=== PATIENT | female | born 2000 | race Caucasian/White ===

== ENCOUNTER 2024-04-05 17:11 | Emergency (ER) | payer OTHER, SELFPAY ==
[2024-04-05 17:16] VITALS: BP 126/83
[2024-04-05 19:16] VITALS: BP 121/75
--- NOTE | 2024-04-05 23:07 | ED.MUSCINJ ---
HPI-Injury
General
Chief Complaint: Musculo-Skeletal Complaint
Source: patient
Exam Limitations: none
Time Seen by Provider: 04/05/24 18:53
Nursing documentation reviewed up to this point in time: agreed with
History of Present Illness-Injury
Is this injury a work related problem?: No
Is pt an associate of [facility]/[place]?: No
Initial Injury comments:
Patient to ED wtih complaint of pain to right dorsal foot. Pain started a few weeks ago. Seen at , had neg. xray. No history of trauma. Pain persists. Brought to eD by mother for eval.
Past History
Past History
ED Past Medical History: None
ED Past Surgical History: None
Social History
Tobacco: Non-smoker
Alcohol: Occasional
Personal: Single
Living: with family
Employment: Student
Family History
Family History: Other (Noncontributory)
Review of Systems
Review of Systems
Allergies reviewed?: Yes
All Other Systems: ROS reviewed and negative except as documented in HPI and ROS
Constitutional: Reports no symptoms
Musculoskeletal: Reports joint pain (pain to dorsum of right foot)
Skin: Reports no symptoms
Neurological: Reports no symptoms
Psychiatric: Reports no symptoms
Musculoskeletal Injury Exam
Musculoskeletal Injury Exam
Right Dorsal Foot:
Pain with Movement?: Moderate
Tender to palpation?: Moderate
Soft tissue swelling?: Mild
External deformity and angulation?: None
Joint effusion?: None
Contusion?: None
Hematoma-local bleeding into tissue?: None
Strain- Sprain- Tear (Connective tissue injury)?: Moderate
Crepitus with movement?: No
Joint instability?: No
Malalignment/deformity?: No
Distal skin color and temperature: normal-warm & good color
Capillary Refill: normal
Normal distal neurovascular exam?: Yes
Peripheral Pulses: posterior tibial (right): 3+ and dorsalis pedis (right): 3+
Phy Exam
General Physical Exam
General Presentation: well appearing and no apparent distress
General age: appears stated age
General Skin: warm and dry
General Habitus: normal
General Mental: alert
Musculoskeletal Exam
Musculoskeletal Exam: neuro vasc intact and other (Achilles intact, no tenderness base of 5th)
Skin Exam
Skin Exam: normal color, warm/dry and no rash
Psychiatric Exam
Psychiatric Exam: normal mood/affect
Injury Course
Orders/Labs/Results
Orders:
Orders
04/05/24 17:15
Foot, Right 3 View [CR Foot - Right Min 3 Views] Urgent
Comment:
Reason For Exam: pain
04/05/24 19:00
Ortho Boot Right- Treatment ONCE
Short or tall?: Short
*Radiology
Radiology exam reviewed: radiology read reviewed
*Pulse Oximetry
Patient hypoxic: no
*Critical Care Note
Total Time (30-74mins, 75-104mins- exclusive of procedures): Not Applicable
ED Attending Note
-
Portions of this chart may have been created with voice recognition software.� Occasional wrong word or��sound alike� substitutions may have occurred due to the inherent limitations of voice recognition software.
Discharge Plan
Departure
Patient Disposition: Home (Routine Discharge)
Date of Disposition: 04/05/24
Time of Disposition: 19:00
Patient with high blood pressure during this ER visit?: No
Condition: Good
Covid-19: Not Applicable
Discharge Problem:
Metatarsal stress fracture
Instructions: Ibuprofen, Walking Boot, Using Cold for Pain, Stress Fracture ED
Prescriptions:
No Action
No Meds [No Current Medications]
0
cefixime [Suprax] 400 MG tablet
400 mg PO DAILY 14 Days Qty: 14 0RF
ibuprofen 600 MG tablet
600 mg PO QIDPRN PRN (Reason: pain) Qty: 30 0RF
Referrals:
Deshawn Loera MD [Active] - Call in 1-3 days for appt
Interventions
Interventions:
*Risk Screen - Suicide Last Done: 04/05/24 17:12
*General Assessment Last Done: 04/05/24 19:16
*Neglect/Abuse Screening Last Done: 04/05/24 19:14
*Nursing Disposition Last Done: 04/05/24 19:16
ED-Musculoskeletal Assessment Last Done: 04/05/24 19:14
Discharge Date and Time
Discharge Date/Time: 04/05/24 19:26
Print Language: DIVEHI
== END 2024-04-05 19:26 | disposition home or self-care (01) ==
LOC: EMR 17:11
PROVIDERS: EMERGENCY PHYSICIAN Emergency Medicine
DX: M84.377A Stress fracture, right toe(s), initial encounter for fracture (principal)
CPT/HCPCS: 99283; 29515; 73630

== ENCOUNTER 2024-07-28 18:46 | Emergency (ER) | payer OTHER, SELFPAY ==
[2024-07-28 18:51] VITALS: BP 130/82
[2024-07-28 19:22] LABS: Hematocrit 42.3 % (37.0-47.0); Hemoglobin 14.3 g/dL (12.0-16.0); Mean Corp Hgb Conc. 33.8 g/dL (33.0-37.0); Mean Corpuscular Hgb 28.6 pg (27.0-31.0); Mean Corpuscular Volume 84.6 fL (81.0-99.0); Mean Platelet Volume 8.2 fL (7.4-10.4); Platelet Count 297 10^3/uL (130-400); Red Cell Dist. Width 12.1 % (11.5-14.5); White Blood Cell Count 5.7 10^3/uL (4.8-10.8)
[2024-07-28 19:37] LABS: Blood Urea Nitrogen 14 mg/dl (7-17); Calcium 10.2 mg/dl (8.4-10.2); Carbon Dioxide 26 mmol/L (22-30); Chloride 100 mmol/L (98-107); Glucose 104 mg/dl (70-99); Potassium 3.7 mmol/L (3.5-5.1); Sodium 138 mmol/L (135-145); eGFR > 60.00
[2024-07-28 19:50] VITALS: BP 134/79
[2024-07-28 19:50] LABS: Troponin I < 0.012 ng/ml
--- NOTE | 2024-07-28 20:06 | ED.GENMED ---
History of Present Illness
General
Chief Complaint: Heart Rate Problem
Source: patient and family (Mother)
Exam Limitations: none
Time Seen by Provider: 07/28/24 19:45
History of Present Illness
History of Present Illness:
This is a 23 year old female that comes in with c/o feeling like her heart was racing. States that this started about 20min before she got here States that she feels like she is having a heart attack. Mom states that she has had this in the past
over the past several months. Patient states that she had an ache in the left shoulder, SOB, and lightheadedness. Denies any fever, chills, abd pain, nausea, vomiting, diarrhea, headache, urinary burning.
Past History
Past History
ED Past Medical History: None; Negative Asthma, HTN, Hypercholesterolemia or NIDDM
ED Past Surgical History: None
Social History
Tobacco: Former smoker (vaping)
Alcohol: Occasional
Personal: Single
Living: with family
Employment: Student
Family History
Family History: Other (Noncontributory)
Review of Systems
Review of Systems
All Other Systems: ROS reviewed and negative except as documented in HPI and ROS
Constitutional: Reports no symptoms; Denies fever or chills
EENT: Reports no symptoms
Respiratory: Reports trouble breathing; Denies cough
Cardiac: Reports chest pain
ABD/GI: Reports no symptoms; Denies abdominal pain, nausea, vomiting or diarrhea
: Reports no symptoms; Denies dysuria, frequency or urgency
Musculoskeletal: Reports no symptoms
Skin: Reports no symptoms
Neurological: Reports other (lightheaded); Denies dizzy or headache
Psychiatric: Reports no symptoms
Phy Exam
General Physical Exam
General Presentation: well appearing and no apparent distress
General age: appears stated age
General Skin: warm and dry
General Habitus: normal
General Mental: anxious
General Hydration: appears well hydrated
ENT Exam
ENT Exam: TM's normal, pharynx normal and neck supple
Eye Exam
Eye Exam: EOMI
Cardiovascular Exam
Cardiovascular Exam: regular rate/rhythm, no edema, no murmur and normal peripheral pulses
Pulmonary Exam
Pulmonary Exam: lungs clear, no respiratory distress, no rales, chest non tender, no crackles, no rhonchi, no wheezing and no cough
Gastrointestinal Exam
Gastrointestinal Exam: normal bowel sounds, non tender, soft, no organomegaly, no pulsatile mass and non distended
Musculoskeletal Exam
Musculoskeletal Exam: full ROM and no edema
Skin Exam
Skin Exam: normal color, warm/dry, no rash and no petechia
Psychiatric Exam
Psychiatric Exam: normal mood/affect
Course
Orders/Labs/Results
Orders:
Orders
07/28/24 18:47
EKG [Electrocardiogram (*1)] Urgent
Reason for Study: Palpitations
EKG- Treatment ONCE
07/28/24 19:06
Basic Metabolic Panel Urgent
Complete Blood Count/No Diff Urgent
TSH Urgent
Troponin I Urgent
07/28/24 20:06
CR Chest - 2 Views Urgent
Comment:
Reason For Exam: Chest pain
07/28/24 21:29
Electrocardiogram (*1) Urgent
Reason for Study: Chest Pain
Other Reason for Exam: Repeat with Troponin
EKG- Treatment ONCE
Lorazepam [Ativan] 0.5 mg PO NOW STA
07/28/24 21:34
D-Dimer Urgent
07/28/24 21:35
Troponin I Urgent
Abnormal Lab Results
07/28/24
19:06
Glucose 104 H mg/dl
(70-99)
07/28/24 19:06
07/28/24 19:06
glucose nonfasting. Troponin <0.012 TSH slightly low at 1.56, Second Troponin <0.012
D-dimer <0.27,
Vital Signs
Initial and Last Documented VS:
Initial Vital Signs
Temp Pulse Resp BP Pulse Ox
97.8 F 80 16 130/82 100
07/28/24 18:51 07/28/24 18:51 07/28/24 18:51 07/28/24 18:51 07/28/24 18:51
Last Documented Vital Signs
Temp Pulse Resp BP Pulse Ox
97.8 F 85 22 121/65 96
07/28/24 18:51 07/28/24 22:00 07/28/24 22:00 07/28/24 22:00 07/28/24 22:00
MDM/Problems Addressed
Differential Diagnosis Includes:
Anxiety, tachycardia
MDM/Problems Addressed:
This is a 23 year old female that comes in with c/o feeling like she is having a heart attack. States that she feels like her heart is racing and patient keeps trying to take her pulse on her Carotid.
Will check labs, Chest x-ray.
Back into see patient. Patient states that he still is having some discomfort in the left chest. Patient is very anxious. Will get D-dimer, Repeat Troponin and give patient Ativan to help relax patient.
Back into see patient. Explained that her Second Troponin was normal along with the D-dimer. Patient has an appointment with the family doctor tomorrow. Will discharge home.
Chronic conditions affecting care:
NA
Acute Exacerbation and/or Progression of Chronic Illness:
NA
*Radiology
Radiology exam reviewed: radiology read reviewed (Chest-No acute cardiopulmonary process)
*EKG
Interpreted by ED Provider?: Yes
Heart Rate: 89
Rate: normal
Rhythm: sinus
[place]: normal axis
Interval: normal interval
QRS Pattern: normal QRS
Ischemia: no ischemia
*Kettle Hand Interpretation
Rate: normal
Heart Rate: 81
Rhythm: sinus
*Critical Care Note
Total Time (30-74mins, 75-104mins- exclusive of procedures): Not Applicable
ED Attending Note
-
Portions of this chart may have been created with voice recognition software.� Occasional wrong word or��sound alike� substitutions may have occurred due to the inherent limitations of voice recognition software.
Discharge Plan
Departure
Patient Disposition: Home (Routine Discharge)
Date of Disposition: 07/28/24
Time of Disposition: 23:03
Patient with high blood pressure during this ER visit?: No
Condition: Good
Covid-19: Not Applicable
Discharge Problem:
Chest pain in adult, Anxiety
Instructions: Anxiety in adults - ED discharge instructions, Chest Pain PCP Follow Up
Prescriptions:
No Action
No Current Medications
0
Referrals:
Prince Cline, DO [Family Provider] - Tomorrow
Activity Restrictions/Additional Instructions:
As discussed, your blood work is normal. Your Chest x-ray is normal. Please follow up with the family doctor as ordered tomorrow. Please increase your water intake to 8-8oz glasses daily. IF YOU HAVE ANY OTHER CONCERNS PLEASE RETURN TO THE
EMERGENCY ROOM.
Interventions
Interventions:
*Risk Screen - Suicide Last Done: 07/28/24 18:51
*General Assessment Last Done: 07/28/24 22:09
*Neglect/Abuse Screening Last Done: 07/28/24 18:51
ED- Fall Risk Assessment Last Done: 07/28/24 20:20
*ED COVID-19 Vaccine History Last Done: 07/28/24 20:39
ED- Cardiac Assessment Last Done: 07/28/24 20:20
ED- Pulmonary Assessment Last Done: 07/28/24 20:20
Discharge Date and Time
Print Language: SINGAPORE[place]
[2024-07-28 20:08] LABS: TSH 1.56 uIU/ml (0.47-4.68)
[2024-07-28 20:30] VITALS: BP 117/74
[2024-07-28 20:37] VITALS: BMI 26.6
[2024-07-28 21:00] VITALS: BP 126/70
[2024-07-28 22:00] VITALS: BP 121/65
[2024-07-28 22:04] LABS: Troponin I < 0.012 ng/ml
[2024-07-28 22:23] LABS: D-Dimer < 0.27 ug/mlFEU (0.00-0.50)
[2024-07-28 23:00] VITALS: BP 113/64
== END 2024-07-28 23:17 | disposition home or self-care (01) ==
LOC: EMR 18:46
PROVIDERS: Clinical Nurse Specialist Family Health; Emergency Medicine; EMERGENCY PHYSICIAN Student in an Organized Health Care Education/Training Program; FAMILY PHYSICIAN Family Medicine
DX: R07.89 Other chest pain (principal); F41.9 Anxiety disorder, unspecified; Z87.891 Personal history of nicotine dependence
CPT/HCPCS: 99285; 71046; 80048; 84443; 84484; 85027; 85379; 93005

== ENCOUNTER 2024-09-29 18:42 | Emergency (ER) | payer OTHER, SELFPAY ==
[2024-09-29 18:46] VITALS: BP 123/91
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
[2024-09-29 21:29] VITALS: BP 112/83
== END 2024-09-29 21:30 | disposition home or self-care (01) ==
LOC: EMR 18:42
PROVIDERS: EMERGENCY PHYSICIAN Emergency Medicine
DX: S00.83XA Contusion of other part of head, initial encounter (principal); M25.512 Pain in left shoulder; R51.9 Headache, unspecified; V49.40XA Driver injured in collision with unspecified motor vehicles in traffic accident, initial encounter; Y92.410 Unspecified street and highway as the place of occurrence of the external cause; Z87.891 Personal history of nicotine dependence
CPT/HCPCS: 99284; 70450

== ENCOUNTER 2024-12-23 11:31 | Emergency (ER) | payer SELFPAY ==
[2024-12-23 11:40] VITALS: BP 104/72
[2024-12-23 12:02] LABS: % Basophils 1.3 % (0-2); % Eosinophils 3.8 % (0-6); % Immature Granulocytes 0.2 % (0-0.5); % Lymphocytes 27.2 % (20.5-51.1); % Monocytes 10.9 % (1.7-9.3); % Neutrophils 56.6 % (42.2-75.2); Absolute Basophils 0.1 10^3/uL (0-0.2); Absolute Eosinophils 0.2 10^3/uL (0-0.7); Absolute Lymphocytes 1.3 10^3/uL (1.2-3.4); Absolute Monocytes 0.5 10^3/uL (0.1-0.6); Absolute Neutrophils 2.7 10^3/uL (1.4-6.5); Hematocrit 40.5 % (37.0-47.0); Hemoglobin 13.6 g/dL (12.0-16.0); Mean Corp Hgb Conc. 33.6 g/dL (33.0-37.0); Mean Corpuscular Hgb 28.5 pg (27.0-31.0); Mean Corpuscular Volume 84.9 fL (81.0-99.0); Mean Platelet Volume 8.2 fL (7.4-10.4); Nucleated Red Blood Cells % 0 %; Platelet Count 319 10^3/uL (130-400); Red Blood Cell Count 4.77 10^6/uL (4.20-5.40); Red Cell Dist. Width 12.2 % (11.5-14.5); White Blood Cell Count 4.7 10^3/uL (4.8-10.8)
[2024-12-23 12:11] LABS: HCG, Serum Qualitative Screen Negative
[2024-12-23 12:15] LABS: ALT (SGPT) 15 U/L (0-35); AST (SGOT) 18 U/L (14-36); Albumin 4.9 g/dl (3.5-5.0); Alkaline Phosphatase 79 U/L (38-126); Blood Urea Nitrogen 9 mg/dl (7-17); Calcium 9.3 mg/dl (8.4-10.2); Carbon Dioxide 25 mmol/L (22-30); Chloride 107 mmol/L (98-107); Glucose 104 mg/dl (70-99); Potassium 4.5 mmol/L (3.5-5.1); Sodium 141 mmol/L (135-145); Total Bilirubin 0.5 mg/dl (0.2-1.3); Total Protein 7.9 g/dl (6.3-8.2); eGFR > 60.00
[2024-12-23 12:26] LABS: Troponin I < 0.012 ng/ml
--- NOTE | 2024-12-23 14:14 | ED.GENMED ---
History of Present Illness
General
Chief Complaint: Chest Pain
Source: patient
Time Seen by Provider: 12/23/24 13:57
History of Present Illness
History of Present Illness:
This patient is a 24-year-old female who states that around 930 this morning she started to develop chest discomfort and felt 'winded' but then developed into a feeling of 'indigestion'. Shortly after arrival, her symptoms fully resolved and she is
currently asymptomatic. She denies PE/DVT risk factors such as family or personal history, estrogen use, leg swelling, recent immobilization, recent trauma, recent surgery, etc. She denies associated diaphoresis, nausea, vomiting, back pain,
abdominal pain, or other complaints. The pain was not pleuritic in nature, without any exacerbating relieving factors.
Past History
Past History
ED Past Medical History: None; Negative Asthma, HTN, Hypercholesterolemia or NIDDM
ED Past Surgical History: None
Social History
Tobacco: Vaping (vaping)
Alcohol: Occasional
Drug: None
Personal: Partner
Living: with family
Employment: Student
Family History
Family History: Other (Noncontributory)
Phy Exam
Physical Exam
Physical Exam:
GENERAL: Alert , in no apparent distress
EYE: pupils equal and reactive
NECK: Supple, no significant adenopathy.
ENT: o/p clr, mmm.
CARDIAC: Regular rate and rhythm .
LUNGS: Clear breath sounds bilaterally, no acute respiratory distress, no wheezes/rales/rhonchi
ABDOMEN: Soft, without focal tenderness, no r/g, no cvat
NEUROLOGICAL: Alert and oriented, no focal neuro deficits
SKIN: Warm and dry, skin intact.
MUSCULOSKELETAL: No edema, well perfused.
PSYCH: Normal and appropriate interaction.
Scores
Heart Score for Chest Pain Patients
STEMI patient?: Not applicable
PERC Rule Criteria
Age <50 years: Yes
HR <100 bpm: Yes
Room air oxygen sat >94%: Yes
History of DVT or PE: No
Recent trauma or surgery: No
Hemoptysis: No
Exogenous estrogen: No
Clinical signs suggestive of DVT: No
: No
Considered low risk for PE: Yes
PERC Score: 0
PE can be excluded by PERC: Yes
Course
Orders/Labs/Results
Orders:
Orders
12/23/24 11:32
ECG [Electrocardiogram (*1)] Urgent
Reason for Study: Chest Pain
EKG- Treatment ONCE
12/23/24 11:44
Test Result ONCE
12/23/24 11:50
Complete Blood Count/With Diff Urgent
Comprehensive Metabolic Panel Urgent
HCG, Serum Qualitative Screen Urgent
Troponin I Urgent
Abnormal Lab Results
12/23/24
11:50
WBC 4.7 L 10^3/uL
(4.8-10.8)
Monocytes % 10.9 H %
(1.7-9.3)
Glucose 104 H mg/dl
(70-99)
12/23/24 11:50
12/23/24 11:50
Vital Signs
Initial and Last Documented VS:
Initial Vital Signs
Temp Pulse Resp BP Pulse Ox
98.0 F 83 16 104/72 98
12/23/24 11:40 12/23/24 11:40 12/23/24 11:40 12/23/24 11:40 12/23/24 11:40
Last Documented Vital Signs
Temp Pulse Resp BP Pulse Ox
98.0 F 83 16 104/72 98
12/23/24 11:40 12/23/24 11:40 12/23/24 11:40 12/23/24 11:40 12/23/24 11:40
*Critical Care Note
Total Time (30-74mins, 75-104mins- exclusive of procedures): Not Applicable
Update Note
Update Note:
Patient presents to the Emergency Department with
Number and Complexity of Problems Addressed at the Encounter
� Chronic conditions affecting care:
� Acute Exacerbation and/or Progression of Chronic Illness:
� Differential Diagnosis includes: ACS, PE, anxiety, pneumothorax, pericarditis, etc. etc.
Amount and/or Complexity of Data to be Reviewed and Analyzed
� I performed an independent evaluation of and my interpretation is:
EKG: Read by me, normal sinus rhythm, normal axis, no ischemia
CT:
Xrays: Patient declines
Laboratory Studies: Unremarkable generally
Other:
� Review of other/old records reveals:
� Clinical information was obtained by an independent historian: Tonie� who is bedside
� Prescriptions/Medications Considered but not given:
� Further testing considered but not performed:
Risk of Complications and/or Morbidity or Mortality of Patient Management
� Social determinants of health affecting care:
� Discussion with other providers (PCP, Hospitalists, Consultants, etc):
� Escalation of care including admission/observation vs risk of discharge considered: Patient asymptomatic and very eager to leave the hospital as she does not feel that the symptoms were consistent with a serious event. Patient
is very low risk for a PE. No findings in history or physical to suggest other more emergent/urgent etiologies such as ACS, pericarditis, pneumothorax, etc. etc. Discussed with patient portance of follow-up and reasons return to the ER.
ED Attending Note
-
Portions of this chart may have been created with voice recognition software.� Occasional wrong word or��sound alike� substitutions may have occurred due to the inherent limitations of voice recognition software.
Discharge Plan
Departure
Patient Disposition: Home (Routine Discharge)
Date of Disposition: 12/23/24
Time of Disposition: 14:17
Patient with high blood pressure during this ER visit?: No
Condition: Good
Discharge Problem:
Chest pain
Instructions: Chest Pain PCP Follow Up
Prescriptions:
No Action
No Current Medications
0
Referrals:
UNKNOWN - PT DOES,NOT KNOW [Family Provider]
Activity Restrictions/Additional Instructions:
PLEASE FOLLOW-UP WITH YOUR DOCTOR THIS WEEK. IF YOU DEVELOP RECURRENT CHEST PAIN, ANY TROUBLE BREATHING, FEVER, CHILLS, ABDOMINAL PAIN, BACK PAIN, DIZZINESS, OR OTHER WORRISOME SIGNS, PLEASE RETURN THE ER IMMEDIATELY!
Interventions
Interventions:
*Risk Screen - Suicide Last Done: 12/23/24 11:40
*Neglect/Abuse Screening Last Done: 12/23/24 11:40
Discharge Date and Time
Print Language: LAO
[2024-12-23 14:28] VITALS: BP 121/68
== END 2024-12-23 14:33 | disposition home or self-care (01) ==
LOC: EMR 11:31
PROVIDERS: Student in an Organized Health Care Education/Training Program; EMERGENCY PHYSICIAN Emergency Medicine
DX: R07.89 Other chest pain (principal); F17.290 Nicotine dependence, other tobacco product, uncomplicated
CPT/HCPCS: 99284; 80053; 84484; 84703; 85025; 93005

== ENCOUNTER 2025-01-08 01:04 | Emergency (ER) | payer OTHER, SELFPAY ==
[2025-01-08 01:07] VITALS: BP 132/84
== END 2025-01-08 02:42 ==
LOC: EMR 01:04
DX: R07.89 Other chest pain (principal)
CPT/HCPCS: 93005

== ENCOUNTER 2025-05-20 23:58 | Emergency (ER) | payer SELFPAY ==
[2025-05-21 00:02] VITALS: BP 125/84
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
[2025-05-21] MEDS: RABAVERT RABIES VACC W-DILUENT 2.5 UNIT IM (01:11)
== END 2025-05-21 01:31 | disposition home or self-care (01) ==
LOC: EMR 23:58
PROVIDERS: EMERGENCY PHYSICIAN Student in an Organized Health Care Education/Training Program
DX: S60.512A Abrasion of left hand, initial encounter (principal); W55.03XA Scratched by cat, initial encounter; Y92.239 Unspecified place in hospital as the place of occurrence of the external cause; Y99.0 Civilian activity done for income or pay; Z20.3 Contact with and (suspected) exposure to rabies; Z23 Encounter for immunization; Z29.14 Encounter for prophylactic rabies immune globulin; F17.290 Nicotine dependence, other tobacco product, uncomplicated
CPT/HCPCS: 99282; 90471; 96372; 90375; 90675